=== PATIENT | female | born 1960 | race Caucasian/White ===

== ENCOUNTER 2024-09-17 13:14 | Inpatient (IN) ==
--- NOTE | 2024-09-17 13:35 | EKG ---
Test Reason : stroke protocol Blood Pressure : */* mmHG Vent. Rate : 73 BPM Atrial Rate : 73 BPM P-R Int : 200 ms QRS Dur : 80 ms QT Int : 400 ms P-R-T Axes : 18 10 39 degrees QTc Int : 440 ms Normal sinus rhythm Normal ECG No previous ECGs available Confirmed by Sukhwinder Mendosa MD ([id number]) on 09/18/2024 7:45:23 AM Referred By: Confirmed By: Sukhwinder Mendosa MD
[2024-09-17 13:55] LABS: BASOPHILS % (AUTO) 0.4 % (0.2-1.0); EOSINOPHILS # (AUTO) 0.1 x10^3/uL (0.0-0.2); EOSINOPHILS % (AUTO) 1.1 % (0.9-2.9); HEMATOCRIT 41.6 % (36.0-47.0); HEMOGLOBIN 14.1 g/dL (12.0-16.0); LYMPHOCYTES # (AUTO) 3.1 X10^3/uL (1.3-2.9); LYMPHOCYTES % (AUTO) 27.9 % (21.0-51.0); MEAN CORPUSCULAR HEMOGLOBIN 31.8 pg (27.0-34.0); MEAN CORPUSCULAR VOLUME 93.8 fL (80.0-100.0); MONOCYTES # (AUTO) 0.9 x10^3/uL (0.3-0.8); MONOCYTES % (AUTO) 8.4 % (0.0-13.0); NEUTROPHILS % (AUTO) 62.2 % (42.0-75.0); PLATELET COUNT 248 X10^3/uL (150.0-450.0); RED BLOOD COUNT 4.43 X10^6/uL (3.5-5.4); RED CELL DISTRIBUTION WIDTH 14.4 % (11.6-16.5); WHITE BLOOD COUNT 11.2 X10^3/uL (3.6-10.0)
[2024-09-17 14:05] LABS: ALANINE AMINOTRANSFERASE 48 Units/L (12-78); ALBUMIN 3.7 g/dL (3.4-5.0); ALKALINE PHOSPHATASE 131 Units/L (46-116); ASPARTATE AMINO TRANSFERASE 32 Units/L (15-37); BLOOD UREA NITROGEN 15 mg/dL (7-18); CALCIUM 8.9 mg/dL (8.5-10.1); CARBON DIOXIDE 27.8 mmol/L (21-32); CHLORIDE 105 mmol/L (98-107); CREATININE 0.84 mg/dL (0.55-1.02); GLUCOSE 109 mg/dL (65-99); POTASSIUM 4.1 mmol/L (3.5-5.1); SODIUM 143 mmol/L (136-145); TOTAL PROTEIN 7.8 g/dL (6.4-8.2); eGFR NON BLACK RACES > 60 (>60)
[2024-09-17 14:48] LABS: INR 1.48 (0.8-1.3)
[2024-09-17 14:55] LABS: MAGNESIUM 2.1 mg/dL (2.0-2.9)
--- NOTE | 2024-09-17 15:19 | CT ---
EXAM: HEAD CT WITHOUT INTRAVENOUS CONTRASTHISTORY: Altered mental status. Slurred speech.TECHNIQUE: Spiral axial CT images are obtained through the brain without the administration of intravenous contrast. Additional sagittal and coronal reformatted images are reconstructed.COMPARISON: Head CT dated August 28, 2024.FINDINGS:There is an approximately 4.3 cm AP by 2.8 cm transverse by 1.8 cm CC old stable right temporal lobe (MCA territory) infarction. There are parenchymal lucencies within the white matter tracks of the centrum semiovale, consistent with chronic sequela of atherosclerotic microvascular ischemic disease.There is diffuse cerebral cortical atrophy. The centrum semiovale, basal ganglia, cerebellum, and brainstem are otherwise grossly unremarkable for a noncontrast CT scan. There is no acute intracranial hemorrhage, gross acute infarction, mass lesion, midline shift, or hydrocephalus seen. No extra-axial mass or abnormal fluid collection noted.The calvarium is intact. There is stable severe chronic left posterior ethmoid and left sphenoid sinusitis marked by lobular mucoperiosteal thickening with air cell opacifications. The partially imaged paranasal sinuses, middle ear cavities and mastoid air cells are otherwise clear.IMPRESSION:1. Approximately 4.3 cm AP by 2.8 cm transverse by 1.8 cm CC old stable right temporal lobe (MCA territory) infarction.2. Chronic microvascular ischemic disease, but no discernible acute infarction seen. Consider followup MRI with diffusion-weighted imaging to rule out occult acute infarction if clinically warranted.3. No skull fracture, intracranial hemorrhage, mass lesion, midline shift, or hydrocephalus seen.4. Stable severe chronic left posterior ethmoid and left sphenoid sinusitis marked by lobular mucoperiosteal thickening with air cell opacifications.5. Overall, no significant interval change seen.THIS IS AN ELECTRONICALLY VERIFIED FINAL REPORT09/17/2024 3:14 PM - Electronically signed by Jae Arroyo MD
--- NOTE | 2024-09-17 15:25 | RAD ---
EXAM:CHEST, 1 VIEWHISTORY:Shortness of Breath;COMPARISON:NoneFINDINGS:The cardiomediastinal silhouette is prominent.No acute airspace disease. No pneumothorax or effusion.No acute osseous abnormality.IMPRESSION:No acute cardiopulmonary disease.THIS IS AN ELECTRONICALLY VERIFIED FINAL REPORT09/17/2024 3:22 PM - Electronically signed by Aj Wallace MD
--- NOTE | 2024-09-17 16:55 | DR.WEAKNES ---
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 Today, Patient was brought over by jail staff, [facility] and stated since last night she has gotten worse she has not been able to swollow her food without getting choked on it, states dysphagia has gotten worse per family and staff. Chief Complaint:: Aphasia Source History Provided: Patient Mode of Arrival Mode of Arrival: Stretcher Timing Onset of Chief Complaint: 09/16/24 Symptom Onset: Known (48h ago) Context Stroke Symptoms: Aphasia and Weakness of limb (RUE) PMH PMH Past Medical History: Yes Past Medical History: Anemia, Anxiety, Coronary Artery Disease, CVA, Depression, Dyslipidemia, Migraines, GERD, Headaches and Hypertension Past Surgical History: Yes Surgical History: Tonsillectomy and Other Family History History of Family Medical Conditions: Yes Family Medical History: Diabetes Mellitus, Coronary Artery Disease and Heart Failure Social History Does patient currently use any type of tobacco product: No Have you used tobacco products in the last 12 months: No Do you use any recreational Drugs:: No Travel Risk Coronavirus risk:travel/contact w/high risk person: No Has patient experienced Coronavirus symptoms: No Infectious screening In the last 2 months have you had wt loss of >10#?: NO Have you had fever, night sweats or hemotysis?: No Have you traveled outside the country in the last 6 months?: No Isolation: Standard ROS Review of Systems Unable to Obtain Due To: Altered mental status PE Vital Signs Vitals: Vital Signs Temperature 98.3 F Pulse Rate 73 Pulse Rate 74 Pulse Rate 74 Pulse Rate 74 Pulse Rate 73 Pulse Rate 73 Pulse Rate 74 Pulse Rate 74 Pulse Rate 73 Pulse Rate 73 Pulse Rate 73 Pulse Rate 71 Pulse Rate 71 Pulse Rate 72 Pulse Rate 70 Pulse Rate 70 Pulse Rate 71 Respiratory Rate 27 Respiratory Rate 25 Respiratory Rate 36 Respiratory Rate 36 Respiratory Rate 35 Respiratory Rate 35 Respiratory Rate 32 Respiratory Rate 36 Respiratory Rate 31 Respiratory Rate 32 Respiratory Rate 31 Respiratory Rate 36 Respiratory Rate 23 Respiratory Rate 29 Blood Pressure 140/84 Blood Pressure 136/88 Blood Pressure 136/88 Blood Pressure 136/88 Blood Pressure 149/76 Blood Pressure 161/74 Blood Pressure 144/71 Blood Pressure 136/70 Blood Pressure 136/70 Blood Pressure 136/70 Blood Pressure 136/70 Blood Pressure 134/72 Blood Pressure 139/75 O2 Sat by Pulse Oximetry 99 O2 Sat by Pulse Oximetry 98 O2 Sat by Pulse Oximetry 98 O2 Sat by Pulse Oximetry 98 O2 Sat by Pulse Oximetry 98 O2 Sat by Pulse Oximetry 99 O2 Sat by Pulse Oximetry 94 O2 Sat by Pulse Oximetry 96 O2 Sat by Pulse Oximetry 98 O2 Sat by Pulse Oximetry 98 O2 Sat by Pulse Oximetry 97 O2 Sat by Pulse Oximetry 99 O2 Sat by Pulse Oximetry 98 O2 Sat by Pulse Oximetry 98 Head Head Exam: Normal Inspection Eyes Eye exam: Normal Appearance Eyelids: Normal Inspection: Bilateral Pupils: Regular, Round: Bilateral Sclera/Conjunctival: Normal Inspection: Bilateral Anterior Chamber: Normal Inspection: Bilateral ENT ENT Exam: Normal Exam Mouth Exam: Normal Inspection Throat Exam: Normal Inspection Neck Neck Exam: Normal Inspection Chest Chest Inspection: Normal Inspection Respiratory Respiratory Exam: Normal Lung Sounds Bilat Respiratory Exam: Bilateral: Clear to Auscultation Cardiovascular Cardiovascular Exam: Regular Rate and Normal Rhythm Extremities Extremities Exam: Normal Inspection Back Back Exam: Normal Inspection Neurologic Neurological Exam: Other (L-sided hemiparesis (consistent with hx of prior CVA), RUE able to move, however tremulous with movement. Pt non-verbal. Making some eye contact. Not following commands.) Skin Skin Exam: Warm, Dry, Intact and Normal Color ROR Labs Reviewed Laboratory Results Reviewed?: Yes 09/17/24 13:47 09/17/24 13:47 Laboratory: WBC 11.2 X10^3/uL (3.6-10.0) H 09/17/24 13:47 RBC 4.43 X10^6/uL (3.5-5.4) 09/17/24 13:47 Hgb 14.1 g/dL (12.0-16.0) 09/17/24 13:47 Hct 41.6 % (36.0-47.0) 09/17/24 13:47 MCV 93.8 fL (80.0-100.0) 09/17/24 13:47 MCH 31.8 pg (27.0-34.0) 09/17/24 13:47 MCHC 34.0 g/dL (33.0-35.0) 09/17/24 13:47 RDW 14.4 % (11.6-16.5) 09/17/24 13:47 Plt Count 248 X10^3/uL (150.0-450.0) 09/17/24 13:47 MPV 7.0 fL (7.4-11.0) L 09/17/24 13:47 Neut % (Auto) 62.2 % (42.0-75.0) 09/17/24 13:47 Lymph % (Auto) 27.9 % (21.0-51.0) 09/17/24 13:47 [place] % (Auto) 8.4 % (0.0-13.0) 09/17/24 13:47 Eos % (Auto) 1.1 % (0.9-2.9) 09/17/24 13:47 Baso % (Auto) 0.4 % (0.2-1.0) 09/17/24 13:47 Neut # (Auto) 7.0 x10^3/uL (2.2-4.8) H 09/17/24 13:47 Lymph # (Auto) 3.1 X10^3/uL (1.3-2.9) H 09/17/24 13:47 [place] # (Auto) 0.9 x10^3/uL (0.3-0.8) H 09/17/24 13:47 Eos # (Auto) 0.1 x10^3/uL (0.0-0.2) 09/17/24 13:47 Baso # (Auto) 0.0 X10^3/uL (0.0-0.1) 09/17/24 13:47 Absolute Nucleated RBC 0.1 /100WBC 09/17/24 13:47 PT 17.5 SECONDS (11.8-14.3) 09/17/24 14:35 INR Target Range - 09/17/24 14:35 INR 1.48 (0.8-1.3) H 09/17/24 14:35 APTT 29.9 SECONDS (22.9-36.5) 09/17/24 14:35 PTT Comment - 09/17/24 14:35 Sodium 143 mmol/L (136-145) 09/17/24 13:47 Corrected Sodium TNP 09/17/24 13:47 Potassium 4.1 mmol/L (3.5-5.1) 09/17/24 13:47 Chloride 105 mmol/L (98-107) 09/17/24 13:47 Carbon Dioxide 27.8 mmol/L (21-32) 09/17/24 13:47 BUN 15 mg/dL (7-18) 09/17/24 13:47 Creatinine 0.84 mg/dL (0.55-1.02) 09/17/24 13:47 Est GFR (MDRD) Af Amer > 60 (>60) 09/17/24 13:47 Est GFR (MDRD) Non-Af > 60 (>60) 09/17/24 13:47 Glucose 109 mg/dL (65-99) H 09/17/24 13:47 Calcium 8.9 mg/dL (8.5-10.1) 09/17/24 13:47 Corrected Calcium TNP 09/17/24 13:47 Magnesium 2.1 mg/dL (2.0-2.9) 09/17/24 14:35 Total Bilirubin 0.60 mg/dL (0.2-1.0) 09/17/24 13:47 AST 32 Units/L (15-37) 09/17/24 13:47 ALT 48 Units/L (12-78) 09/17/24 13:47 Alkaline Phosphatase 131 Units/L (46-116) H 09/17/24 13:47 Creatine Kinase 90 Units/L (26-192) 09/17/24 14:35 Troponin I High Sens 6.3 ng/L (4.0-60.0) 09/17/24 14:35 B-Natriuretic Peptide 39.2 pg/mL (0-79) 09/17/24 14:35 Total Protein 7.8 g/dL (6.4-8.2) 09/17/24 13:47 Albumin 3.7 g/dL (3.4-5.0) 09/17/24 13:47 Globulin 4.1 g/dL (2.5-4.5) 09/17/24 13:47 Albumin/Globulin Ratio 0.9 Ratio (1.1-2.1) L 09/17/24 13:47 Opioid Opioid Risk Tool Age (Fox box if 16-45): No History of Preadolescent Sexual Abuse: No Total: 0 Total Score Risk Category: Low Risk Copyright: [facility] predicting aberrant behaviors Discharge Plan Diagnosis Discharge Problem: Acute CVA (cerebrovascular accident), Aphasia, Aspiration into airway Discharge Plan Patient Disposition: 09 ADMITTED INPATIENT Condition: Stable Prescriptions: No Action topiramate 25 mg tablet 25 mg PO DAILY amitriptyline 25 mg tablet 50 mg PO HS Patient Comments: [NO ORIGINAL SIG] magnesium oxide [MagOx] 400 mg (241.3 mg magnesium) Tablet 400 mg PO QDAY Ferrocite Plus 106 mg iron- 1 mg Tablet 1 tab PO QDAY escitalopram oxalate 10 mg tablet 10 mg PO HS Refresh Relieva PF 0.5-0.9 % drops 1 drp OPHTHALMIC (EYE) BID Patient Comments: [NO ORIGINAL SIG] Rx Instructions: both eyes cyclobenzaprine 10 mg tablet 10 mg PO BID PRN atorvastatin 40 mg tablet 40 mg PO HS zinc 100 mg Tablet 100 mg PO QDAY omega-3 fatty acids 1,000 mg Capsule 1,000 mg PO QDAY aspirin [Aspir-81] 81 mg Tablet,Delayed Release (Dr/Ec) 81 mg PO DAILY losartan 25 mg tablet 75 mg PO DAILY metoprolol tartrate 25 mg tablet 25 mg PO BID Eliquis 5 mg tablet 5 mg PO BID ondansetron HCl 4 mg tablet 4 mg PO Q8H PRNQty: 10 0RF Health Concerns: Post Hospitalization: new medications and changes needed to prevent readmission or further decline. Pt educated and given instructions on all concerns. Plan of Treatment: Continue with present treatment and follow up plan. Pt is to keep follow up appointment as instructed and take medications as ordered. Orders to Discharge Patient Discharge Orders: Transfer (Routine); Ordered 09/17/24 Ordered By: Krunal Merida Follow ups/Referrals Follow ups/Referrals: NFD,None [Primary Care Provider] - 3 days Instructions Stand Alone Forms: Find Help Web Site, Post Hospital Follow Up Care ADDITIONAL NOTES Additional Notes Additional Notes: Admitted to Dr French at 1640 for further workup and evaluation of CVA and aspiration.
[2024-09-17 18:58] VITALS: BMI 34.0
[2024-09-17] MEDS: NS 1,000 ML IV 1,000 ML IV SCH (19:39)
[2024-09-17] MEDS: ELIQUIS PO SCH (21:09)
[2024-09-17] MEDS: LIPITOR TAB 40 MG PO SCH (21:09)
[2024-09-17] MEDS: LOPRESSOR TAB 25 MG PO SCH (21:09)
[2024-09-17] MEDS: ELAVIL PO SCH (21:09)
[2024-09-18 05:13] LABS: BASOPHILS % (AUTO) 0.3 % (0.2-1.0); EOSINOPHILS # (AUTO) 0.1 x10^3/uL (0.0-0.2); EOSINOPHILS % (AUTO) 1.5 % (0.9-2.9); HEMATOCRIT 38.6 % (36.0-47.0); HEMOGLOBIN 13.2 g/dL (12.0-16.0); LYMPHOCYTES # (AUTO) 2.4 X10^3/uL (1.3-2.9); LYMPHOCYTES % (AUTO) 26.5 % (21.0-51.0); MEAN CORPUSCULAR HEMOGLOBIN 31.8 pg (27.0-34.0); MEAN CORPUSCULAR HGB CONC 34.1 g/dL (33.0-35.0); MEAN CORPUSCULAR VOLUME 93.3 fL (80.0-100.0); MONOCYTES # (AUTO) 0.7 x10^3/uL (0.3-0.8); MONOCYTES % (AUTO) 7.5 % (0.0-13.0); NEUTROPHILS # (AUTO) 5.9 x10^3/uL (2.2-4.8); NEUTROPHILS % (AUTO) 64.2 % (42.0-75.0); PLATELET COUNT 250 X10^3/uL (150.0-450.0); RED BLOOD COUNT 4.14 X10^6/uL (3.5-5.4); RED CELL DISTRIBUTION WIDTH 14.4 % (11.6-16.5); WHITE BLOOD COUNT 9.1 X10^3/uL (3.6-10.0)
[2024-09-18 05:25] LABS: ALANINE AMINOTRANSFERASE 43 Units/L (12-78); ALBUMIN 3.4 g/dL (3.4-5.0); ALKALINE PHOSPHATASE 113 Units/L (46-116); ASPARTATE AMINO TRANSFERASE 25 Units/L (15-37); BLOOD UREA NITROGEN 20 mg/dL (7-18); CALCIUM 8.4 mg/dL (8.5-10.1); CARBON DIOXIDE 24.3 mmol/L (21-32); CHLORIDE 106 mmol/L (98-107); CHOL/HDL RATIO 2.6 (0.0-5.0); CHOLESTEROL 113 mg/dL (0-200); COR NA(FOR HYPERGLY) 142 mmol/L (136-145); CREATININE 0.83 mg/dL (0.55-1.02); GLUCOSE 117 mg/dL (65-99); HDL CHOLESTEROL 43 mg/dL (40-60); POTASSIUM 3.6 mmol/L (3.5-5.1); SODIUM 142 mmol/L (136-145); TOTAL PROTEIN 6.9 g/dL (6.4-8.2); TRIGLYCERIDES 63 mg/dL (0-150); eGFR NON BLACK RACES > 60 (>60)
[2024-09-18 05:29] LABS: INR 1.46 (0.8-1.3)
[2024-09-18] MEDS ORDERED: CONSULT PHARMACY - POTASSIUM & MAGNESIUM XX SCH (07:00)
--- NOTE | 2024-09-18 08:06 | RAD ---
EXAMINATION:CHEST, 1 VIEWHISTORY:Cough, Aspiration; .COMPARISON STUDY:Chest x-ray 09/17/2019TECHNIQUE:Single frontal view of the chestFINDINGS:Lungs are expanded. Patchy interstitial alveolar infiltrate in the right pulmonary base. Equivocal infiltrate right pulmonary apex. Mild cardiac silhouette enlargement. Mild curvature thoracic spine convexity toward right.IMPRESSION:Patchy interstitial alveolar infiltrate right pulmonary base with a equivocal infiltrate right pulmonary apex.Cardiac silhouette enlargement.THIS IS AN ELECTRONICALLY VERIFIED FINAL REPORT09/18/2024 8:03 AM - Electronically signed by Camille Richardson MD
[2024-09-18 08:56] LABS: CREATININE 0.79 mg/dL (0.55-1.02)
[2024-09-18] MEDS ORDERED: PHARMACY CONSULT - LOVENOX XX SCH (09:00)
[2024-09-18] MEDS ORDERED: PATIENT'S HOME MEDICATION (Losartan 25 mg tablet) PO SCH (09:00)
[2024-09-18] MEDS ORDERED: PHARMACY CONSULT LTC MEDICATIONS XX SCH (09:00)
[2024-09-18] MEDS ORDERED: K-DUR TAB 20 MEQ PO SCH (09:00)
[2024-09-18] MEDS: ROCEPHIN VIAL 1 GRAM 1 G in NS 100 ML IV 100 ML IV SCH (09:36)
[2024-09-18] MEDS: LOVENOX INJ 40 MG SYR SC SCH (09:38)
[2024-09-18] MEDS: ASPIRIN EC 81 MG PO SCH (09:43)
[2024-09-18] MEDS: COZAAR PO SCH (09:43)
[2024-09-18] MEDS: DIFLUCAN 200 MG IV PREMIX* 200 MG/100 ML BAG IV SCH (10:06)
[2024-09-18] MEDS: K-RIDER 10 MEQ/100 ML WATER 10 MEQ/100 ML BAG IV SCH (11:23)
--- NOTE | 2024-09-18 12:48 | VAS ---
EXAM:CAROTID USHISTORY:CVA;Altered mental status.COMPARISON:None available.TECHNIQUE:Multiple woodson scale, duplex and color flow Doppler images of the right and left carotid arterial system were obtained. The vertebral arterial system was evaluated as well.FINDINGS:Nonocclusive color flow Doppler is seen throughout the right and left carotid arterial system.Abnormally elevated carotid velocities are seen within the left CCA arteries in the 50-69% stenosis range.There is moderate atherosclerotic plaque formation of the bilateral carotid bulbs and proximal ICAs with associated intimal thickening but without evidence for any additional high-grade stenosis (>70%) or occlusion of the carotid arteries. The right and left vertebral artery demonstrate antegrade flow.There is patent flow and normal duplex waveforms within the right and left external carotid arteries.Peak right ICA velocity: 83 centimeter/seconds.Peak right CCA velocity: 63 centimeter/seconds.Right ICA to CCA ratio: 2.0.Peak left ICA velocity: 90 centimeter/seconds.Peak left CCA velocity: 147 centimeter/seconds.Left ICA to CCA ratio: 1.0.IMPRESSION:Abnormally elevated carotid velocities are seen within the left CCA arteries in the 50-69% stenosis range.There is moderate atherosclerotic plaque formation of the bilateral carotid bulbs and proximal ICAs with associated intimal thickening but without evidence for any additional high-grade stenosis (>70%) or occlusion of the carotid arteries. The right and left vertebral artery demonstrate antegrade flow.THIS IS AN ELECTRONICALLY VERIFIED FINAL REPORT09/18/2024 12:45 PM - Electronically signed by Johnson Walton MD
[2024-09-18] MEDS ORDERED: APRESOLINE INJ 20 MG VIAL IVP PRN (14:58)
--- NOTE | 2024-09-18 16:52 | MRI ---
EXAM:BRAIN W/O CONHISTORY:CVA;COMPARISON:CT yesterdayTECHNIQUE:Multiplanar multi-sequence MRI of the brain was obtained utilizing standard departmental protocol. Sagittal and axial T1 weighted images were obtained. Axial T2 and flair weighted images were performed as well. Axial diffusion weighted and ADC trace mapping was performed.FINDINGS:The midline structures appear unremarkable. The evaluation of the brain parenchyma demonstrates no abnormal signal characteristics to suggest intraparenchymal mass or hemorrhage. No extra-axial fluid collections are observed. The ventricular system appears symmetric and nondilated. The CP angle is normal in its appearance without brainstem mass or evidence for acoustic neuroma. The flow voids on both T1 and T2 weighted imaging appear unremarkable. Evaluation of the diffusion weighted imaging does not demonstrate abnormal signal characteristics to suggest acute ischemic change. Chronic infarcts are noted in the right temporal lobe and right occipital lobe. Moderate small-vessel ischemic changes and age-appropriate atrophy noted. The extracranial structures are unremarkable.IMPRESSION:Chronic changes as above with no evidence for any acute/subacute stroke.THIS IS AN ELECTRONICALLY VERIFIED FINAL REPORT09/18/2024 4:49 PM - Electronically signed by Eddie Michel MD
--- NOTE | 2024-09-18 18:01 | DR.H&P ---
H&P History & Physical for Day of: H&P Date: 09/17/24 Chief Complaint Chief Complaint: AMS, RIGHT SIDE WEAKNESS History of Present Illness History of Present Illness: PT IS 63 WF, RESIDENT OF [facility], ER ADMISSION WITH NEW ONSET RIGHT SIDE WEAKNESS ON WEDNESDAY. PT'S FAMILY REPORTS SHE WAS NORMAL PHYSICAL CONDITION EARILIER WEDNESDAY. PT HAD CO SOB FAMILY PRACTICE MEDICAL DOCTOR. PT HAS PMH OF LEFT SIDE PARALYSIS FOLLOWING A CVA ~ 2 YEARS AGO. 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 PT HAD CT HEAD IN ER, ADMITTED FOR TREATMENT AND EVALUATION OF ACUTE I LLNESS Past Medical History Past Medical History: Anemia, Anxiety, Coronary Artery Disease, CVA, Depression, Dyslipidemia, Migraines, GERD, Headaches and Hypertension Past Surgical History Surgical History: Tonsillectomy and Other Family History Family Medical History: Diabetes Mellitus and Coronary Artery Disease Social History Does patient currently use any type of tobacco product: No Have you used tobacco products in the last 12 months: No Type of Tobacco Use: None Does any household member use tobacco: No Alcohol Use: None Drug Use: None Medications Home Medications: Home Medications Medication Instructions Recorded Confirmed Type apixaban 5 mg tablet (Eliquis) 5 mg PO BID 07/17/23 09/17/24 History aspirin 81 mg tablet,delayed 81 mg PO DAILY 07/17/23 09/17/24 History release atorvastatin 40 mg tablet 40 mg PO HS 07/17/23 09/17/24 History cyclobenzaprine 10 mg tablet 10 mg PO BID PRN 07/17/23 09/17/24 History losartan 25 mg tablet 75 mg PO DAILY 07/17/23 09/17/24 History metoprolol tartrate 25 mg tablet 25 mg PO BID 07/17/23 09/17/24 History omega-3 fatty acids 1,000 mg 1,000 mg PO QDAY 07/17/23 09/17/24 History capsule zinc 100 mg tablet 100 mg PO QDAY 07/17/23 09/17/24 History amitriptyline 25 mg tablet 50 mg PO HS 09/16/24 09/17/24 History carboxymethylcellulose 0.5 1 drp ophthalmic (eye) BID dry eyes 09/16/24 09/17/24 History %-glycerin 0.9 % (PF) eye drops (Refresh Relieva PF) escitalopram oxalate 10 mg tablet 10 mg PO HS 09/16/24 09/17/24 History magnesium oxide 400 mg (241.3 mg 400 mg PO QDAY 09/16/24 09/17/24 History magnesium) tablet (MagOx) topiramate 25 mg tablet 25 mg PO DAILY 09/16/24 09/17/24 History B [id number] 106 mg 1 tab PO QDAY 09/17/24 09/17/24 History iron-1 mg tablet acetaminophen 325 mg tablet 650 mg PO Q4H PRN 09/17/24 09/17/24 History (Tylenol) Allergies Allergies Allergy/AdvReac Type Severity Reaction Status Date / Time lisinopril Allergy Verified 09/17/24 13:23 Labs 09/18/24 04:56 09/18/24 04:56 Labs: Laboratory WBC 9.1 X10^3/uL (3.6-10.0) 09/18/24 04:56 RBC 4.14 X10^6/uL (3.5-5.4) 09/18/24 04:56 Hgb 13.2 g/dL (12.0-16.0) 09/18/24 04:56 Hct 38.6 % (36.0-47.0) 09/18/24 04:56 MCV 93.3 fL (80.0-100.0) 09/18/24 04:56 MCH 31.8 pg (27.0-34.0) 09/18/24 04:56 MCHC 34.1 g/dL (33.0-35.0) 09/18/24 04:56 RDW 14.4 % (11.6-16.5) 09/18/24 04:56 Plt Count 250 X10^3/uL (150.0-450.0) 09/18/24 04:56 MPV 7.0 fL (7.4-11.0) L 09/18/24 04:56 Neut % (Auto) 64.2 % (42.0-75.0) 09/18/24 04:56 Lymph % (Auto) 26.5 % (21.0-51.0) 09/18/24 04:56 [place] % (Auto) 7.5 % (0.0-13.0) 09/18/24 04:56 Eos % (Auto) 1.5 % (0.9-2.9) 09/18/24 04:56 Baso % (Auto) 0.3 % (0.2-1.0) 09/18/24 04:56 Neut # (Auto) 5.9 x10^3/uL (2.2-4.8) H 09/18/24 04:56 Lymph # (Auto) 2.4 X10^3/uL (1.3-2.9) 09/18/24 04:56 [place] # (Auto) 0.7 x10^3/uL (0.3-0.8) 09/18/24 04:56 Eos # (Auto) 0.1 x10^3/uL (0.0-0.2) 09/18/24 04:56 Baso # (Auto) 0.0 X10^3/uL (0.0-0.1) 09/18/24 04:56 Absolute Nucleated RBC 0.0 /100WBC 09/18/24 04:56 PT 17.4 SECONDS (11.8-14.3) 09/18/24 04:56 INR Target Range - 09/18/24 04:56 INR 1.46 (0.8-1.3) H 09/18/24 04:56 APTT 30.7 SECONDS (22.9-36.5) 09/18/24 04:56 PTT Comment - 09/18/24 04:56 Sodium 142 mmol/L (136-145) 09/18/24 04:56 Corrected Sodium 142 mmol/L (136-145) 09/18/24 04:56 Potassium 3.6 mmol/L (3.5-5.1) 09/18/24 04:56 Chloride 106 mmol/L (98-107) 09/18/24 04:56 Carbon Dioxide 24.3 mmol/L (21-32) 09/18/24 04:56 BUN 18 mg/dL (7-18) 09/18/24 04:56 BUN 20 mg/dL (7-18) H 09/18/24 04:56 Creatinine 0.79 mg/dL (0.55-1.02) 09/18/24 04:56 Creatinine 0.83 mg/dL (0.55-1.02) 09/18/24 04:56 Est GFR (MDRD) Af Amer > 60 (>60) 09/18/24 04:56 Est GFR (MDRD) Non-Af > 60 (>60) 09/18/24 04:56 Glucose 117 mg/dL (65-99) H 09/18/24 04:56 Calcium 8.4 mg/dL (8.5-10.1) L 09/18/24 04:56 Corrected Calcium TNP 09/18/24 04:56 Magnesium 2.0 mg/dL (2.0-2.9) 09/18/24 04:56 Total Bilirubin 0.70 mg/dL (0.2-1.0) 09/18/24 04:56 AST 25 Units/L (15-37) 09/18/24 04:56 ALT 43 Units/L (12-78) 09/18/24 04:56 Alkaline Phosphatase 113 Units/L (46-116) 09/18/24 04:56 Creatine Kinase 93 Units/L (26-192) 09/17/24 19:20 Troponin I High Sens 9.3 ng/L (4.0-60.0) 09/18/24 04:56 Troponin I High Sens Cancelled 09/18/24 04:56 B-Natriuretic Peptide 39.2 pg/mL (0-79) 09/17/24 14:35 Total Protein 6.9 g/dL (6.4-8.2) 09/18/24 04:56 Albumin 3.4 g/dL (3.4-5.0) 09/18/24 04:56 Globulin 3.5 g/dL (2.5-4.5) 09/18/24 04:56 Albumin/Globulin Ratio 1.0 Ratio (1.1-2.1) L 09/18/24 04:56 Triglycerides 63 mg/dL (0-150) 09/18/24 04:56 Cholesterol 113 mg/dL (0-200) 09/18/24 04:56 LDL Cholesterol, Calc 57 mg/dL (0-100) 09/18/24 04:56 HDL Cholesterol 43 mg/dL (40-60) 09/18/24 04:56 Cholesterol/HDL Ratio 2.6 (0.0-5.0) 09/18/24 04:56 Review of Systems Constitutional: Weakness Eyes: No Symptoms Reported and Vision Change ENT: Other (EXCESSIVE DROOLING ) Respiratory: Shortness of Breath Cardiovascular: No Symptoms Reported Gastrointestinal: Constipation; denies Vomiting Genitourinary: Incontinence Musculoskeletal: Other (PARALYSIS) Skin: No Symptoms Reported Neurological: Weakness, Change in Speech and Confusion Physical Exam Vital Signs: Vital Signs Temperature 98.0 F Temperature 98.6 F Temperature 98.6 F Pulse Rate [Left] 94 Pulse Rate [Left] 102 Pulse Rate [Left] 102 Respiratory Rate 18 Respiratory Rate 24 Respiratory Rate 24 Blood Pressure [Left Arm] 137/72 Blood Pressure [Left Arm] 119/69 Blood Pressure [Left Arm] 119/69 O2 Sat by Pulse Oximetry 95 O2 Sat by Pulse Oximetry 94 O2 Sat by Pulse Oximetry 94 Oriented: Unable to test Eyes: negative Discharge or Redness Nose: Normal Throat: Dry Respiratory: RLL Diminished and LLL Diminished Cardiovascular: Edema; negative Tachycardia Auscultation: Bowel Sounds: Normal Palpation: Normal Tenderness: Normal Skin: Decreased Turgur Musculoskeletal: Motor Deficit and Sensory Deficit Psychiatric: Other (CANNOT ASSESS DUE TO APHAGIA) Speech Pattern: Aphasic and Unable to speak Assessment/Plan (1) Acute CVA (cerebrovascular accident): Status: Acute Plan: ADMIT, CE AND EKG,C T HEAD ON ADMISSION MRI BRAIN CAROTID,ECHO, VERIFY HOME MEDICATIONS BP CONTROL, NPO UNTIL MRI BRAIN AND SPEECH EVALUATION PRN SUPPLEMENTAL O2, ASPIRATION PRECAUTIONS (2) History of CVA (cerebrovascular accident): Status: Acute (3) Afib: Status: Acute (4) Hypertension: Status: Acute (5) Hyperlipidemia: Status: Acute
[2024-09-19] MEDS: STERILE WATER IRRIGATION IR ONE (09:00)
[2024-09-19] MEDS: DUONEB 0.5 MG/3 MG (3 mL) NEB SCH (13:46)
--- NOTE | 2024-09-19 14:44 | CT ---
EXAM:ABDCMEN/PELVIS WITH CONHISTORY:abdominal pain;COMPARISON:NoneTECHNIQUE:Multiple CT axial images of the abdomen and pelvis were obtained with IV contrast. Coronal and sagittal images were reconstructed. Dose reduction techniques included Automated Exposure Control (AEC) and adjustment of mA and kV.FINDINGS:No consolidation or pleural effusion. Heart size at the upper limits of normal.The liver is normal in size and configuration. The gallbladder has no edema around it. The spleen is normal in size and shape.The adrenal glands are normal. The pancreas is normal.Respiratory motion artifact was present during imaging of the upper kidneys. There is at least 1 calcification in the left mid kidney measuring 3 mm. Possible 1 mm calcification lower pole right kidney. No mass or hydronephrosis. Probable cortical scarring inferior right kidney. The urinary bladder is partially contracted around a Alberts balloon catheter.Large stool volume in the rectosigmoid colon suggests constipation. There is no bowel dilatation or obstruction otherwise noted. No pneumoperitoneum. No bowel inflammation. A normal appendix is not identified. But there is no inflammation around the cecum or at the expected location of the appendix. There are diverticula in the colon. But there is no wall thickening or pericolonic edema to suggest acute diverticulitis.Degenerative disc disease is present at L4-5.IMPRESSION:1. Findings consistent with rectal constipation2. Nonobstructing left renal calculus3. Colonic diverticulaTHIS IS AN ELECTRONICALLY VERIFIED FINAL REPORT09/19/2024 2:41 PM - Electronically signed by Lake Philip MD
[2024-09-19 15:30] LABS: BILIRUBIN,URINE NEGATIVE (NEGATIVE); BLOOD/HEMOGLOBIN,URINE 1+ (NEGATIVE); GLUCOSE, URINE NEGATIVE (NEGATIVE); KETONES,URINE 3+ (NEGATIVE); LEUKOCYTE ESTERASE ,URINE 1+ (NEGATIVE); NITRITES,URINE NEGATIVE (NEGATIVE); PROTEIN,URINE 1+ (NEGATIVE); UROBILINOGEN,URINE NORMAL (NORMAL)
[2024-09-19 15:31] LABS: APPEARANCE,URINE SLIGHTLY HAZY (CLEAR); COLOR,URINE PALE YELLOW (YELLOW)
[2024-09-19 16:28] LABS: BACTERIA,URINE 1+ /HPF (NEGATIVE); SQUAMOUS EPITHELIAL CELL,UR NUMEROUS /HPF (NEGATIVE)
[2024-09-19] MEDS ORDERED: PHARMACY CONSULT - TPN XX SCH (16:31)
[2024-09-19] MEDS: PULMICORT NEB TX 0.5 MG NEB SCH (20:28)
--- NOTE | 2024-09-20 05:28 | RAD ---
EXAM: CHEST, 1 VIEW HISTORY: Pt not voiding for 14 hrs; COMPARISON: None. TECHNIQUE: FINDINGS: Mild pulmonary vascular congestion. No large consolidation or visible pleural effusion. Ectatic tho racic aorta. No pneumothorax. IMPRESSION: Findings as above THIS IS AN ELECTRONICALLY VERIFIED FINAL REPORT 09/20/2024 5:25 AM - Electronically signed by Denis Enriquez MD
[2024-09-20 05:42] LABS: BASOPHILS # (AUTO) 0.1 X10^3/uL (0.0-0.1); BASOPHILS % (AUTO) 0.5 % (0.2-1.0); EOSINOPHILS % (AUTO) 0.3 % (0.9-2.9); HEMATOCRIT 38.1 % (36.0-47.0); HEMOGLOBIN 12.9 g/dL (12.0-16.0); LYMPHOCYTES # (AUTO) 2.3 X10^3/uL (1.3-2.9); LYMPHOCYTES % (AUTO) 19.5 % (21.0-51.0); MEAN CORPUSCULAR HEMOGLOBIN 31.7 pg (27.0-34.0); MEAN CORPUSCULAR HGB CONC 33.9 g/dL (33.0-35.0); MEAN CORPUSCULAR VOLUME 93.5 fL (80.0-100.0); MEAN PLATELET VOLUME 7.1 fL (7.4-11.0); MONOCYTES % (AUTO) 8.5 % (0.0-13.0); NEUTROPHILS # (AUTO) 8.3 x10^3/uL (2.2-4.8); NEUTROPHILS % (AUTO) 71.2 % (42.0-75.0); PLATELET COUNT 255 X10^3/uL (150.0-450.0); RED BLOOD COUNT 4.07 X10^6/uL (3.5-5.4); RED CELL DISTRIBUTION WIDTH 14.4 % (11.6-16.5); WHITE BLOOD COUNT 11.6 X10^3/uL (3.6-10.0)
[2024-09-20 06:01] LABS: ALANINE AMINOTRANSFERASE 35 Units/L (12-78); ALBUMIN 3.1 g/dL (3.4-5.0); ALKALINE PHOSPHATASE 104 Units/L (46-116); ASPARTATE AMINO TRANSFERASE 22 Units/L (15-37); BLOOD UREA NITROGEN 11 mg/dL (7-18); CALCIUM 8.4 mg/dL (8.5-10.1); CARBON DIOXIDE 22.9 mmol/L (21-32); CHLORIDE 106 mmol/L (98-107); COR CA(FOR HYPOALB) 9.1 mg/dL (8.5-10.1); COR NA(FOR HYPERGLY) 140 mmol/L (136-145); CREATININE 0.62 mg/dL (0.55-1.02); GLUCOSE 121 mg/dL (65-99); POTASSIUM 3.6 mmol/L (3.5-5.1); SODIUM 139 mmol/L (136-145); eGFR NON BLACK RACES > 60 (>60)
[2024-09-20] MEDS: OMNIPAQUE 350 mg/mL 100 mL BTL 100 ML ONE (11:43)
[2024-09-20] MEDS ORDERED: ULTRAM PO PRN (13:07)
[2024-09-20] MEDS: DULCOLAX SUPPOSITORY 10 MG RECTAL ONE (14:14)
[2024-09-20] MEDS: ZOFRAN INJ 4 MG VIAL IVP PRN (14:15)
[2024-09-20] MEDS: MORPHINE SULFATE INJ 2 MG INJ IVP PRN (14:15)
[2024-09-20 15:08] LABS: MAGNESIUM 1.9 mg/dL (2.0-2.9); PHOSPHORUS 3.4 mg/dL (2.6-4.7)
[2024-09-20] MEDS: CLINIMIX 5 %/20 % 1,000 ML with MVI INJ (ADULT) 10 ML, TPN ELECTROLYTES 20 ML IV SCH (15:32)
[2024-09-20] MEDS: DRUG FILTER EXTENSION SET ONE (16:19)
[2024-09-20] MEDS: NS 1,000 ML IV 1,000 ML IV SCH (16:20)
[2024-09-20] MEDS: NovoLIN R (or HumuLIN R) SUBCUT PRN (18:22)
[2024-09-21] MEDS: DRUG FILTER EXTENSION SET ONE (05:13)
[2024-09-21 06:49] LABS: PREALBUMIN 15.4 mg/dL (18-35.7)
[2024-09-21 07:00] LABS: ALANINE AMINOTRANSFERASE 30 Units/L (12-78); ALBUMIN 2.7 g/dL (3.4-5.0); ALKALINE PHOSPHATASE 84 Units/L (46-116); ASPARTATE AMINO TRANSFERASE 17 Units/L (15-37); BLOOD UREA NITROGEN 14 mg/dL (7-18); CALCIUM 7.9 mg/dL (8.5-10.1); CARBON DIOXIDE 24.1 mmol/L (21-32); CHLORIDE 106 mmol/L (98-107); COR CA(FOR HYPOALB) 8.9 mg/dL (8.5-10.1); COR NA(FOR HYPERGLY) 140 mmol/L (136-145); CREATININE 0.59 mg/dL (0.55-1.02); GLUCOSE 172 mg/dL (65-99); POTASSIUM 3.5 mmol/L (3.5-5.1); SODIUM 138 mmol/L (136-145); TOTAL PROTEIN 6.3 g/dL (6.4-8.2); eGFR NON BLACK RACES > 60 (>60)
--- NOTE | 2024-09-21 07:13 | DR.UPDATE ---
H&P Update Prescription drug monitoring program results: PDMP was not reviewed H&P Reviewed: Yes Any changes to H&P?: No Patient was examined?: Yes Vital Signs: Temp Pulse Pulse Resp BP BP Pulse Ox 09/21/24 04:00 97.7 F 93 H 18 112/56 94 L 09/21/24 00:00 98.0 F 99 H 20 126/60 95 09/20/24 19:00 09/20/24 20:00 98.4 F 100 H 20 142/79 95 09/20/24 20:34 102 H 95 09/20/24 20:33 09/20/24 16:00 97.8 F 107 H 18 137/75 95 09/20/24 14:45 18 09/20/24 14:15 21 09/20/24 12:00 98.3 F 97 H 18 136/63 95 09/20/24 07:00 09/20/24 08:00 99.2 F 90 18 122/71 95 09/20/24 08:36 09/20/24 04:00 99.5 F 82 22 142/73 94 L 09/20/24 00:00 99.1 F 107 H 21 142/71 94 L 09/19/24 20:00 98.2 F 97 H 22 140/82 94 L 09/19/24 19:00 09/19/24 19:13 98.4 F 104 H 152/79 97 09/19/24 16:00 98.4 F 104 H 18 142/84 97 09/19/24 12:00 98.3 F 95 H 17 165/72 98 09/19/24 13:46 93 H 98 09/19/24 08:00 97.9 F 93 H 16 119/71 98 09/19/24 07:00 09/19/24 04:00 98.4 F 89 18 147/76 95 09/19/24 00:00 98.0 F 89 18 136/77 95 09/18/24 19:00 09/18/24 20:20 09/18/24 20:00 99.4 F 103 H 22 142/62 94 L 09/18/24 16:00 98.0 F 94 H 18 137/72 95 09/18/24 12:00 98.6 F 102 H 24 119/69 94 L 09/18/24 12:00 98.6 F 102 H 24 119/69 94 L 09/18/24 07:50 99.3 F 83 24 123/58 96 O2 Del Method O2 Flow Rate FiO2 09/21/24 04:00 Nasal Cannula 2 09/21/24 00:00 Nasal Cannula 2 09/20/24 19:00 Nasal Cannula 2 09/20/24 20:00 Nasal Cannula 2 09/20/24 20:34 09/20/24 20:33 Nasal Cannula 2 28 09/20/24 16:00 Nasal Cannula 2 09/20/24 14:45 09/20/24 14:15 09/20/24 12:00 Nasal Cannula 2 09/20/24 07:00 Nasal Cannula 2 09/20/24 08:00 Nasal Cannula 2 09/20/24 08:36 Room Air 2 28 09/20/24 04:00 Room Air 09/20/24 00:00 Room Air 09/19/24 20:00 Room Air 09/19/24 19:00 Room Air 09/19/24 19:13 Room Air 09/19/24 16:00 Room Air 09/19/24 12:00 Room Air 09/19/24 13:46 09/19/24 08:00 Room Air 09/19/24 07:00 Room Air 09/19/24 04:00 09/19/24 00:00 09/18/24 19:00 Room Air 09/18/24 20:20 Room Air 09/18/24 20:00 09/18/24 16:00 Room Air 09/18/24 12:00 Room Air 09/18/24 12:00 Room Air 09/18/24 07:50 Room Air Procedures (ALL) - Central Line Placement PCM.CLCO: written consent Time out performed: Yes Patient placed pm monitor/pulse ox: Yes MD prep: mask, gown, gloves, other Centrial line prep: chlorhexidine scrub, sterile drapes applied Local anesthsia used: lidocane 1% Ultrasound used for placement: Yes (right basilic id'd via u/s and cannulation vis) Central line lumen ininserted: double (5.5fr trimmed to 47cm with 6cm exposed) Post procedure: good blood return, all ports aspirated, flushed,capped, sterile dressing applied Post procedure xray: tip oc catheter in good position (appears svc, radiology report pending) Patient tolerated procedure: Yes Complications: none
[2024-09-21] MEDS ORDERED: CONSULT PHARMACY - POTASSIUM & MAGNESIUM XX SCH (08:00)
--- NOTE | 2024-09-21 08:52 | RAD ---
EXAM: CHEST, 1 VIEW HISTORY: PICC LINE PLACEMENT; COMPARISON: 09/19/2024 FINDINGS: A right peripherally inserted central catheter is present with the tip in the expected location of th e superior vena cava. Lungs are moderately inflated but have no significant abnormality. No pneumothorax. Heart size is normal. The bones are unremarkable. EKG leads are noted. IMPRESSION: 1. Uncomplicated line placement THIS IS AN ELECTRONICALLY VERIFIED FINAL REPORT 09/21/2024 8:32 AM - Electronically signed by [place] MD
[2024-09-21] MEDS: LASIX IVP ONE (09:14)
[2024-09-21] MEDS: TPN ELECTROLYTES IV SCH (11:17)
[2024-09-21] MEDS: MVI IV SCH (11:17)
[2024-09-21] MEDS: CLINIMIX IV SCH (11:17)
[2024-09-21] MEDS: [UNRECOGNIZED DRUG - OTHER] IV SCH (11:17)
[2024-09-21] MEDS: PROTONIX INJ 40 MG VIAL IVP SCH (17:01)
--- NOTE | 2024-09-21 23:50 | CT ---
EXAM: SOFT TISSUE NECK W/O CON HISTORY: NECK PAIN; COMPARISON: None. TECHNIQUE: Axial CT images of the neck were obtained without IV contrast and reformatted into sagittal and coron al planes for further evaluation. Radiation dose: 277.28 mGy-cm total DLP FINDINGS: Oropharynx and nasopharynx are unremarkable. Retropharyngeal and parapharyngeal spaces appear normal. Epiglottis and aryepiglottic folds appear normal. Glottis appears normal. Parotid and submandibular glands appear normal. Thyroid appears normal Lung apices are clear of focal airspace disease. No lymphadenopathy. Proximal esophageal wall thickening. Flocculent material in the proximal to mid esophagus. No acute osseous abnormality. Ghya-as-hxdwilib multilevel degenerative disc and joint changes. Zkof-lw-nkbihbjl neural foraminal n arrowing. Imaged portion of the intracranial contents are unremarkable. Sinuses and mastoid air cells are well aerated. IMPRESSION: 1. Proximal esophageal wall thickening. Flocculent material in the proximal to mid esophagus. Findin gs could represent the sequela of a distal esophageal obstruction or esophageal reflux. Wall thicken ing could also represent the sequela of esophagitis. Otherwise, unremarkable exam. 2. Lyid-yh-milwxrwt multilevel degenerative disc and joint changes. Fhmm-dm-xmwhbyoh neural foramina l narrowing. THIS IS AN ELECTRONICALLY VERIFIED FINAL REPORT 09/21/2024 11:47 PM - Electronically signed by Rohith Augustin MD
[2024-09-22 06:16] LABS: BASOPHILS # (AUTO) 0.1 X10^3/uL (0.0-0.1); BASOPHILS % (AUTO) 0.9 % (0.2-1.0); EOSINOPHILS # (AUTO) 0.2 x10^3/uL (0.0-0.2); EOSINOPHILS % (AUTO) 1.8 % (0.9-2.9); HEMATOCRIT 38.9 % (36.0-47.0); HEMOGLOBIN 13.3 g/dL (12.0-16.0); LYMPHOCYTES # (AUTO) 2.6 X10^3/uL (1.3-2.9); MEAN CORPUSCULAR HGB CONC 34.1 g/dL (33.0-35.0); MEAN CORPUSCULAR VOLUME 93.8 fL (80.0-100.0); MEAN PLATELET VOLUME 7.6 fL (7.4-11.0); MONOCYTES % (AUTO) 10.8 % (0.0-13.0); NEUTROPHILS # (AUTO) 5.8 x10^3/uL (2.2-4.8); NEUTROPHILS % (AUTO) 59.5 % (42.0-75.0); PLATELET COUNT 262 X10^3/uL (150.0-450.0); RED BLOOD COUNT 4.15 X10^6/uL (3.5-5.4); RED CELL DISTRIBUTION WIDTH 14.3 % (11.6-16.5); WHITE BLOOD COUNT 9.7 X10^3/uL (3.6-10.0)
[2024-09-22 07:02] LABS: ALANINE AMINOTRANSFERASE 32 Units/L (12-78); ALBUMIN 2.7 g/dL (3.4-5.0); ALKALINE PHOSPHATASE 83 Units/L (46-116); ASPARTATE AMINO TRANSFERASE 18 Units/L (15-37); BLOOD UREA NITROGEN 15 mg/dL (7-18); CALCIUM 8.5 mg/dL (8.5-10.1); CARBON DIOXIDE 24.9 mmol/L (21-32); CHLORIDE 107 mmol/L (98-107); COR CA(FOR HYPOALB) 9.5 mg/dL (8.5-10.1); COR NA(FOR HYPERGLY) 143 mmol/L (136-145); CREATININE 0.62 mg/dL (0.55-1.02); GLUCOSE 222 mg/dL (65-99); POTASSIUM 3.8 mmol/L (3.5-5.1); SODIUM 140 mmol/L (136-145); TOTAL PROTEIN 6.6 g/dL (6.4-8.2); eGFR NON BLACK RACES > 60 (>60)
[2024-09-22] MEDS: BENADRYL INJ 50 MG VIAL IVP ONE (08:15)
[2024-09-22] MEDS: ISOPTO ATROPINE SL PRN (08:15)
[2024-09-22] MEDS: REGLAN INJ 10 MG VIAL IVP PRN (08:15)
[2024-09-22] MEDS: MERREM VIAL 1 G in NS 100 ML IV 100 ML IV SCH (09:51)
[2024-09-23] MEDS: DEXTROSE 10% 1,000 ML IV PRN (02:47)
[2024-09-23] MEDS: DRUG FILTER EXTENSION SET ONE ×4 (04:16→16:45)
[2024-09-23 07:29] LABS: ALANINE AMINOTRANSFERASE 27 Units/L (12-78); ALBUMIN 2.7 g/dL (3.4-5.0); ALKALINE PHOSPHATASE 81 Units/L (46-116); ASPARTATE AMINO TRANSFERASE 17 Units/L (15-37); BLOOD UREA NITROGEN 15 mg/dL (7-18); CALCIUM 8.4 mg/dL (8.5-10.1); CHLORIDE 107 mmol/L (98-107); COR CA(FOR HYPOALB) 9.4 mg/dL (8.5-10.1); COR NA(FOR HYPERGLY) 142 mmol/L (136-145); CREATININE 0.59 mg/dL (0.55-1.02); GLUCOSE 178 mg/dL (65-99); MAGNESIUM 2.2 mg/dL (2.0-2.9); PHOSPHORUS 2.1 mg/dL (2.6-4.7); POTASSIUM 4.2 mmol/L (3.5-5.1); SODIUM 140 mmol/L (136-145); TOTAL PROTEIN 6.5 g/dL (6.4-8.2); TRIGLYCERIDES 74 mg/dL (0-150); eGFR NON BLACK RACES > 60 (>60)
[2024-09-23] MEDS: PULMICORT NEB TX 0.5 MG NEB ONE (07:56)
[2024-09-23] MEDS: DUONEB 0.5 MG/3 MG (3 mL) NEB ONE (07:56)
--- NOTE | 2024-09-23 11:38 | PCM.PROG ---
Progress Note Progress Note for Day of Date of Exam: 09/23/24 Subjective Subjective: Patient is a 64-year-old female, patient of [facility], admitted for acute CVA. Patient does have a history of prior CVA that has affected her left side, upper and lower extremities. New CVA appears to have weak in her right side upper and lower extremities as well. MRI was ordered, results pending. Due to her poor prognosis she is a DNR. She is currently receiving TPN for nutrition. She also has an acute cystitis for Proteus ESBL. She is currently on IV meropenem. Keep patient NPO ,patient has aphagia. Follow-up imaging results. Otherwise continue with current treatment plan. Continue closely monitor and follow-up labs/imaging. Past Medical Family Social History Allergies: Allergies lisinopril Allergy (Verified 09/17/24 13:23) Review of Systems ROS changes noted: see HPI Vital Signs and I&O's Vital Signs: Vital Signs Temperature 98.7 F Temperature 98.4 F Pulse Rate [Left] 86 Pulse Rate [Left] 82 Respiratory Rate 19 Respiratory Rate 18 Blood Pressure [Left Arm] 141/75 Blood Pressure [Left Arm] 129/64 O2 Sat by Pulse Oximetry 96 O2 Sat by Pulse Oximetry 100 O2 Sat by Pulse Oximetry 96 Intake and Output: Intake & Output 09/20/24 09/21/24 09/22/24 09/23/24 23:59 23:59 23:59 23:59 Intake Total 1663 / 1663 1000 / 1000 1265 / 1265 Output Total 1999 / 1999 1500 / 1500 1000 / 1000 300 / 300 Balance -337 / -337 -1500 / -1500 0 / 0 965 / 965 Physical Exam Oriented: Unable to test Eyes: negative Discharge or Redness Nose: Normal Throat: Dry Respiratory: Diminished Cardiovascular: Edema; negative Tachycardia Auscultation: Bowel Sounds: Normal Tenderness: Normal Skin: Decreased Turgur Musculoskeletal: Motor Deficit and Sensory Deficit Psychiatric: Other (CANNOT ASSESS DUE TO APHAGIA) Mood Description: Calm Speech Pattern: Unable to speak Laboratory and Diagnostics 09/22/24 05:19 09/23/24 06:19 Labs: 09/19/24 15:21 Urine,Catheterized Urine Culture - Final Proteus Mirabilis Esbl Laboratory WBC 9.7 X10^3/uL (3.6-10.0) 09/22/24 05:19 RBC 4.15 X10^6/uL (3.5-5.4) 09/22/24 05:19 Hgb 13.3 g/dL (12.0-16.0) 09/22/24 05:19 Hct 38.9 % (36.0-47.0) 09/22/24 05:19 MCV 93.8 fL (80.0-100.0) 09/22/24 05:19 MCH 32.0 pg (27.0-34.0) 09/22/24 05:19 MCHC 34.1 g/dL (33.0-35.0) 09/22/24 05:19 RDW 14.3 % (11.6-16.5) 09/22/24 05:19 Plt Count 262 X10^3/uL (150.0-450.0) 09/22/24 05:19 MPV 7.6 fL (7.4-11.0) 09/22/24 05:19 Neut % (Auto) 59.5 % (42.0-75.0) 09/22/24 05:19 Lymph % (Auto) 27.0 % (21.0-51.0) 09/22/24 05:19 [place] % (Auto) 10.8 % (0.0-13.0) 09/22/24 05:19 Eos % (Auto) 1.8 % (0.9-2.9) 09/22/24 05:19 Baso % (Auto) 0.9 % (0.2-1.0) 09/22/24 05:19 Neut # (Auto) 5.8 x10^3/uL (2.2-4.8) H 09/22/24 05:19 Lymph # (Auto) 2.6 X10^3/uL (1.3-2.9) 09/22/24 05:19 [place] # (Auto) 1.0 x10^3/uL (0.3-0.8) H 09/22/24 05:19 Eos # (Auto) 0.2 x10^3/uL (0.0-0.2) 09/22/24 05:19 Baso # (Auto) 0.1 X10^3/uL (0.0-0.1) 09/22/24 05:19 Absolute Nucleated RBC 0.0 /100WBC 09/22/24 05:19 PT 17.4 SECONDS (11.8-14.3) 09/18/24 04:56 INR Target Range - 09/18/24 04:56 INR 1.46 (0.8-1.3) H 09/18/24 04:56 APTT 30.7 SECONDS (22.9-36.5) 09/18/24 04:56 PTT Comment - 09/18/24 04:56 Sodium 140 mmol/L (136-145) 09/23/24 06:19 Corrected Sodium 142 mmol/L (136-145) 09/23/24 06:19 Potassium 4.2 mmol/L (3.5-5.1) 09/23/24 06:19 Chloride 107 mmol/L (98-107) 09/23/24 06:19 Carbon Dioxide 25.0 mmol/L (21-32) 09/23/24 06:19 BUN 15 mg/dL (7-18) 09/23/24 06:19 Creatinine 0.59 mg/dL (0.55-1.02) 09/23/24 06:19 Est GFR (MDRD) Af Amer > 60 (>60) 09/23/24 06:19 Est GFR (MDRD) Non-Af > 60 (>60) 09/23/24 06:19 Glucose 178 mg/dL (65-99) H 09/23/24 06:19 POC Glucose (mg/dL) 174 mg/dL (65-99) H 09/23/24 05:36 Hemoglobin A1c 6.0 % 09/19/24 09:00 Calcium 8.4 mg/dL (8.5-10.1) L 09/23/24 06:19 Corrected Calcium 9.4 mg/dL (8.5-10.1) 09/23/24 06:19 Phosphorus 2.1 mg/dL (2.6-4.7) L 09/23/24 06:19 Magnesium 2.2 mg/dL (2.0-2.9) 09/23/24 06:19 Total Bilirubin 0.30 mg/dL (0.2-1.0) 09/23/24 06:19 AST 17 Units/L (15-37) 09/23/24 06:19 ALT 27 Units/L (12-78) 09/23/24 06:19 Alkaline Phosphatase 81 Units/L (46-116) 09/23/24 06:19 Creatine Kinase 84 Units/L (26-192) 09/19/24 18:45 Troponin I High Sens 9.3 ng/L (4.0-60.0) 09/18/24 04:56 Troponin I High Sens Cancelled 09/18/24 04:56 B-Natriuretic Peptide 39.2 pg/mL (0-79) 09/17/24 14:35 Total Protein 6.5 g/dL (6.4-8.2) 09/23/24 06:19 Albumin 2.7 g/dL (3.4-5.0) L 09/23/24 06:19 Globulin 3.8 g/dL (2.5-4.5) 09/23/24 06:19 Albumin/Globulin Ratio 0.7 Ratio (1.1-2.1) L 09/23/24 06:19 Prealbumin 15.4 mg/dL (18-35.7) L 09/21/24 05:49 Triglycerides 74 mg/dL (0-150) 09/23/24 06:19 Cholesterol 113 mg/dL (0-200) 09/18/24 04:56 LDL Cholesterol, Calc 57 mg/dL (0-100) 09/18/24 04:56 HDL Cholesterol 43 mg/dL (40-60) 09/18/24 04:56 Cholesterol/HDL Ratio 2.6 (0.0-5.0) 09/18/24 04:56 Specimen Type Catherized urine 09/19/24 15:21 Urine Color Pale yellow (YELLOW) 09/19/24 15:21 Urine Appearance Slightly hazy (CLEAR) 09/19/24 15:21 Urine pH 6.0 (5.0 - 8.0) 09/19/24 15:21 Ur Specific [place] 1.015 (1.000-1.030) 09/19/24 15:21 Urine Protein 1+ (NEGATIVE) 09/19/24 15:21 Urine Glucose (UA) Negative (NEGATIVE) 09/19/24 15:21 Urine Ketones 3+ (NEGATIVE) 09/19/24 15:21 Urine Blood 1+ (NEGATIVE) 09/19/24 15:21 Urine Nitrite Negative (NEGATIVE) 09/19/24 15:21 Urine Bilirubin Negative (NEGATIVE) 09/19/24 15:21 Urine Urobilinogen Normal (NORMAL) 09/19/24 15:21 Ur Leukocyte Esterase 1+ (NEGATIVE) 09/19/24 15:21 Urine RBC 5-10 /HPF (0-3) A 09/19/24 15:21 Urine WBC 30-50 /HPF (0-5) A 09/19/24 15:21 Ur Squamous Epith Cells Numerous /HPF (NEGATIVE) 09/19/24 15:21 Urine Bacteria 1+ /HPF (NEGATIVE) 09/19/24 15:21 Ur Culture Indicated? Yes/culture set up 09/19/24 15:21 Resp Viral Panel (PCR) See scanned report 09/19/24 09:29 Plan (1) Acute CVA (cerebrovascular accident): Status: Acute (2) History of CVA (cerebrovascular accident): Status: Acute (3) Afib: Status: Acute (4) Hypertension: Status: Acute (5) Hyperlipidemia: Status: Acute
[2024-09-24 06:54] LABS: BLOOD UREA NITROGEN 12 mg/dL (7-18); CALCIUM 8.2 mg/dL (8.5-10.1); CARBON DIOXIDE 24.7 mmol/L (21-32); CHLORIDE 108 mmol/L (98-107); COR NA(FOR HYPERGLY) 143 mmol/L (136-145); CREATININE 0.49 mg/dL (0.55-1.02); GLUCOSE 246 mg/dL (65-99); SODIUM 139 mmol/L (136-145); eGFR NON BLACK RACES > 60 (>60)
[2024-09-24 06:56] LABS: POTASSIUM 4.5 mmol/L (3.5-5.1)
[2024-09-24] MEDS: CLINIMIX 5 %/20 % 1,000 ML with MVI INJ (ADULT) 10 ML, TPN ELECTROLYTES 20 ML IV SCH (09:24)
[2024-09-24] MEDS: DRUG FILTER EXTENSION SET ONE ×2 (09:25)
[2024-09-24 10:59] LABS: BASOPHILS % (AUTO) 0.3 % (0.2-1.0); EOSINOPHILS # (AUTO) 0.1 x10^3/uL (0.0-0.2); EOSINOPHILS % (AUTO) 2.1 % (0.9-2.9); HEMATOCRIT 32.8 % (36.0-47.0); HEMOGLOBIN 9.9 g/dL (12.0-16.0); LYMPHOCYTES # (AUTO) 1.3 X10^3/uL (1.3-2.9); LYMPHOCYTES % (AUTO) 19.9 % (21.0-51.0); MEAN CORPUSCULAR HEMOGLOBIN 31.4 pg (27.0-34.0); MEAN CORPUSCULAR HGB CONC 30.1 g/dL (33.0-35.0); MEAN CORPUSCULAR VOLUME 104.3 fL (80.0-100.0); MEAN PLATELET VOLUME 7.2 fL (7.4-11.0); MONOCYTES # (AUTO) 0.5 x10^3/uL (0.3-0.8); NEUTROPHILS # (AUTO) 4.7 x10^3/uL (2.2-4.8); NEUTROPHILS % (AUTO) 70.7 % (42.0-75.0); PLATELET COUNT 221 X10^3/uL (150.0-450.0); RED BLOOD COUNT 3.14 X10^6/uL (3.5-5.4); RED CELL DISTRIBUTION WIDTH 14.7 % (11.6-16.5); WHITE BLOOD COUNT 6.7 X10^3/uL (3.6-10.0)
--- NOTE | 2024-09-24 11:14 | PCM.PROG ---
Progress Note Progress Note for Day of Date of Exam: 09/24/24 Subjective Subjective: Patient is a 64-year-old female, patient of [facility], admitted for acute CVA. Patient does have a history of prior CVA that has affected her left side, upper and lower extremities. New CVA appears to have weak in her right side upper and lower extremities as well. No acute events overnight. Pt examined at bedside. MRI was ordered, results are still pending. Due to her poor prognosis she is a DNR. She is currently receiving TPN for nutrition. She also has an acute cystitis for Proteus ESBL. She is currently on IV meropenem. Keep patient NPO, patient has aphagia. Follow-up imaging results. Otherwise continue with current treatment plan. Continue closely monitor and follow-up labs/imaging. Past Medical Family Social History Allergies: Allergies lisinopril Allergy (Verified 09/17/24 13:23) Review of Systems ROS changes noted: see HPI Vital Signs and I&O's Vital Signs: Vital Signs Temperature 97.7 F Temperature 98.1 F Pulse Rate [Right Brachial] 88 Pulse Rate [Left] 81 Respiratory Rate 18 Respiratory Rate 20 Blood Pressure [Right Arm] 162/80 Blood Pressure [Left Arm] 134/73 O2 Sat by Pulse Oximetry 96 O2 Sat by Pulse Oximetry 96 O2 Sat by Pulse Oximetry 96 Intake and Output: Intake & Output 09/21/24 09/22/24 09/23/24 09/24/24 23:59 23:59 23:59 23:59 Intake Total 1000 / 1000 3626 / 3626 1800 / 1800 Output Total 1500 / 1500 1000 / 1000 3185 / 3185 700 / 700 Balance -1500 / -1500 0 / 0 441 / 441 1100 / 1100 Physical Exam Oriented: Unable to test Eyes: negative Discharge or Redness Nose: Normal Throat: Dry Respiratory: Diminished Cardiovascular: Edema; negative Tachycardia Auscultation: Bowel Sounds: Normal Tenderness: Normal Skin: Decreased Turgur Musculoskeletal: Motor Deficit and Sensory Deficit Psychiatric: Other (CANNOT ASSESS DUE TO APHAGIA) Mood Description: Calm Speech Pattern: Unclear and Aphasic Laboratory and Diagnostics 09/24/24 10:55 09/24/24 06:15 Labs: 09/19/24 15:21 Urine,Catheterized Urine Culture - Final Proteus Mirabilis Esbl Laboratory WBC 6.7 X10^3/uL (3.6-10.0) 09/24/24 10:55 RBC 3.14 X10^6/uL (3.5-5.4) L 09/24/24 10:55 Hgb 9.9 g/dL (12.0-16.0) L D 09/24/24 10:55 Hct 32.8 % (36.0-47.0) L 09/24/24 10:55 MCV 104.3 fL (80.0-100.0) H 09/24/24 10:55 MCH 31.4 pg (27.0-34.0) 09/24/24 10:55 MCHC 30.1 g/dL (33.0-35.0) L 09/24/24 10:55 RDW 14.7 % (11.6-16.5) 09/24/24 10:55 Plt Count 221 X10^3/uL (150.0-450.0) 09/24/24 10:55 MPV 7.2 fL (7.4-11.0) L 09/24/24 10:55 Neut % (Auto) 70.7 % (42.0-75.0) 09/24/24 10:55 Lymph % (Auto) 19.9 % (21.0-51.0) L 09/24/24 10:55 [place] % (Auto) 7.0 % (0.0-13.0) 09/24/24 10:55 Eos % (Auto) 2.1 % (0.9-2.9) 09/24/24 10:55 Baso % (Auto) 0.3 % (0.2-1.0) 09/24/24 10:55 Neut # (Auto) 4.7 x10^3/uL (2.2-4.8) 09/24/24 10:55 Lymph # (Auto) 1.3 X10^3/uL (1.3-2.9) 09/24/24 10:55 [place] # (Auto) 0.5 x10^3/uL (0.3-0.8) 09/24/24 10:55 Eos # (Auto) 0.1 x10^3/uL (0.0-0.2) 09/24/24 10:55 Baso # (Auto) 0.0 X10^3/uL (0.0-0.1) 09/24/24 10:55 Absolute Nucleated RBC 0.1 /100WBC 09/24/24 10:55 PT 17.4 SECONDS (11.8-14.3) 09/18/24 04:56 INR Target Range - 09/18/24 04:56 INR 1.46 (0.8-1.3) H 09/18/24 04:56 APTT 30.7 SECONDS (22.9-36.5) 09/18/24 04:56 PTT Comment - 09/18/24 04:56 Sodium 139 mmol/L (136-145) 09/24/24 06:15 Corrected Sodium 143 mmol/L (136-145) 09/24/24 06:15 Potassium 4.5 mmol/L (3.5-5.1) 09/24/24 06:15 Chloride 108 mmol/L (98-107) H 09/24/24 06:15 Carbon Dioxide 24.7 mmol/L (21-32) 09/24/24 06:15 BUN 12 mg/dL (7-18) 09/24/24 06:15 Creatinine 0.49 mg/dL (0.55-1.02) L 09/24/24 06:15 Est GFR (MDRD) Af Amer > 60 (>60) 09/24/24 06:15 Est GFR (MDRD) Non-Af > 60 (>60) 09/24/24 06:15 Glucose 246 mg/dL (65-99) H 09/24/24 06:15 POC Glucose (mg/dL) 235 mg/dL (65-99) H 09/24/24 05:20 Hemoglobin A1c 6.0 % 09/19/24 09:00 Calcium 8.2 mg/dL (8.5-10.1) L 09/24/24 06:15 Corrected Calcium 9.4 mg/dL (8.5-10.1) 09/23/24 06:19 Phosphorus 2.1 mg/dL (2.6-4.7) L 09/23/24 06:19 Magnesium 2.2 mg/dL (2.0-2.9) 09/23/24 06:19 Total Bilirubin 0.30 mg/dL (0.2-1.0) 09/23/24 06:19 AST 17 Units/L (15-37) 09/23/24 06:19 ALT 27 Units/L (12-78) 09/23/24 06:19 Alkaline Phosphatase 81 Units/L (46-116) 09/23/24 06:19 Creatine Kinase 84 Units/L (26-192) 09/19/24 18:45 Troponin I High Sens 9.3 ng/L (4.0-60.0) 09/18/24 04:56 Troponin I High Sens Cancelled 09/18/24 04:56 B-Natriuretic Peptide 39.2 pg/mL (0-79) 09/17/24 14:35 Total Protein 6.5 g/dL (6.4-8.2) 09/23/24 06:19 Albumin 2.7 g/dL (3.4-5.0) L 09/23/24 06:19 Globulin 3.8 g/dL (2.5-4.5) 09/23/24 06:19 Albumin/Globulin Ratio 0.7 Ratio (1.1-2.1) L 09/23/24 06:19 Prealbumin 15.4 mg/dL (18-35.7) L 09/21/24 05:49 Triglycerides 74 mg/dL (0-150) 09/23/24 06:19 Cholesterol 113 mg/dL (0-200) 09/18/24 04:56 LDL Cholesterol, Calc 57 mg/dL (0-100) 09/18/24 04:56 HDL Cholesterol 43 mg/dL (40-60) 09/18/24 04:56 Cholesterol/HDL Ratio 2.6 (0.0-5.0) 09/18/24 04:56 Specimen Type Catherized urine 09/19/24 15:21 Urine Color Pale yellow (YELLOW) 09/19/24 15:21 Urine Appearance Slightly hazy (CLEAR) 09/19/24 15:21 Urine pH 6.0 (5.0 - 8.0) 09/19/24 15:21 Ur Specific [place] 1.015 (1.000-1.030) 09/19/24 15:21 Urine Protein 1+ (NEGATIVE) 09/19/24 15:21 Urine Glucose (UA) Negative (NEGATIVE) 09/19/24 15:21 Urine Ketones 3+ (NEGATIVE) 09/19/24 15:21 Urine Blood 1+ (NEGATIVE) 09/19/24 15:21 Urine Nitrite Negative (NEGATIVE) 09/19/24 15:21 Urine Bilirubin Negative (NEGATIVE) 09/19/24 15:21 Urine Urobilinogen Normal (NORMAL) 09/19/24 15:21 Ur Leukocyte Esterase 1+ (NEGATIVE) 09/19/24 15:21 Urine RBC 5-10 /HPF (0-3) A 09/19/24 15:21 Urine WBC 30-50 /HPF (0-5) A 09/19/24 15:21 Ur Squamous Epith Cells Numerous /HPF (NEGATIVE) 09/19/24 15:21 Urine Bacteria 1+ /HPF (NEGATIVE) 09/19/24 15:21 Ur Culture Indicated? Yes/culture set up 09/19/24 15:21 Resp Viral Panel (PCR) See scanned report 09/19/24 09:29 Plan (1) Acute CVA (cerebrovascular accident): Status: Acute Plan: ADMIT, CE AND EKG,C T HEAD ON ADMISSION MRI BRAIN CAROTID,ECHO, VERIFY HOME MEDICATIONS BP CONTROL, NPO UNTIL MRI BRAIN AND SPEECH EVALUATION PRN SUPPLEMENTAL O2, ASPIRATION PRECAUTIONS (2) History of CVA (cerebrovascular accident): Status: Acute (3) Afib: Status: Acute (4) Hypertension: Status: Acute (5) Hyperlipidemia: Status: Acute
[2024-09-25 06:08] LABS: BLOOD UREA NITROGEN 11 mg/dL (7-18); CALCIUM 8.3 mg/dL (8.5-10.1); CARBON DIOXIDE 24.7 mmol/L (21-32); CHLORIDE 104 mmol/L (98-107); COR NA(FOR HYPERGLY) 143 mmol/L (136-145); CREATININE 0.73 mg/dL (0.55-1.02); GLUCOSE 391 mg/dL (65-99); POTASSIUM 3.7 mmol/L (3.5-5.1); SODIUM 136 mmol/L (136-145); eGFR NON BLACK RACES > 60 (>60)
--- NOTE | 2024-09-25 09:11 | MRI ---
EXAM: MRA HEAD W/O CON HISTORY: cva ; COMPARISON: 09/18/2024 TECHNIQUE: Multiplanar, multisequence MR angiogram of the brain obtained without IV contrast. 3D [id number]-rfkjiq sequences obtained and reviewed. FINDINGS: Visualized portions of the bilateral internal carotid arteries appear widely patent. The bilateral m iddle cerebral and anterior cerebral arteries appear widely patent. Poor visualization of the vertebral arteries. Apparent dominant left vertebral artery. The proximal basilar artery appears widely patent. Poor visualization of the distal basilar artery and remaining posterior circulation. No evidence of large vessel aneurysm or dissection in the head. IMPRESSION: Poor visualization of the vertebral arteries, basilar artery, and posterior circulation which may be due to technique/artifact. CTA of the head and neck could better evaluate. Visualized portions of the internal carotid and bilateral middle cerebral arteries appear widely salgado nt. THIS IS AN ELECTRONICALLY VERIFIED FINAL REPORT 09/25/2024 9:05 AM - Electronically signed by Aj Wallace MD
--- NOTE | 2024-09-25 10:41 | MRI ---
EXAM: MRI CERVICAL SPINE WITHOUT CONTRAST HISTORY: NECK PAIN; . COMPARISON: None. TECHNIQUE: Multiplanar multisequence MRI of the cervical spine was performed without contrast. FINDINGS: Grade 1 retrolisthesis at C5-C6 with reversal of cervical lordosis. Moderate multilevel disc height loss and degenerative endplate signal. Normal cervical spinal cord signal. Axial Images: C2-C3: Normal disc. Moderate facet hypertrophy. No spinal canal stenosis or foraminal narrowing. C3-C4: Normal disc. Moderate facet hypertrophy, cyia-nmiykld-vovz-right. No spinal canal stenosis. Moderate left and mild right foraminal narrowing. C4-C5: Uncovertebral hypertrophy and disc osteophyte eccentric to the left. Moderate facet hypertrop hy. Mild spinal canal stenosis. Moderate to severe foraminal narrowing. C5-C6: Diffuse disc osteophyte. Moderate facet hypertrophy. Moderate spinal canal stenosis. Modera te left and eqdmbfdw-ad-mebbzh right foraminal narrowing. C6-C7: Diffuse disc osteophyte. Mild facet hypertrophy. Mild spinal canal stenosis. Severe left an d moderate right foraminal narrowing. C7-T1: Mild uncovertebral and facet hypertrophy. No spinal canal stenosis. Mild foraminal narrowing . IMPRESSION: 1. Acquired multilevel spondylosis. Moderate C5-C6 spinal canal stenosis. 2. Multilevel foraminal narrowing, severe on the left at C6-C7. THIS IS AN ELECTRONICALLY VERIFIED FINAL REPORT 09/25/2024 10:38 AM - Electronically signed by Deni Torres MD
--- NOTE | 2024-09-25 11:54 | RAD ---
EXAM:CHEST, 1 VIEWHISTORY:SOB;COMPARISON:09/20/2024 r.br.br.br PICC unchanged.Scattered bilateral airspace opacities. No pneumothorax or effusion.No acute osseous abnormality.IMPRESSION:Scattered bilateral opacities which may reflect chronic changes or pneumonia.THIS IS AN ELECTRONICALLY VERIFIED FINAL REPORT09/25/2024 11:51 AM - Electronically signed by Aj Wallace MD
[2024-09-25] MEDS: DRUG FILTER EXTENSION SET ONE (19:03)
[2024-09-26 06:19] LABS: BASOPHILS % (AUTO) 0.6 % (0.2-1.0); EOSINOPHILS # (AUTO) 0.1 x10^3/uL (0.0-0.2); EOSINOPHILS % (AUTO) 1.9 % (0.9-2.9); HEMATOCRIT 39.3 % (36.0-47.0); HEMOGLOBIN 13.3 g/dL (12.0-16.0); LYMPHOCYTES # (AUTO) 2.5 X10^3/uL (1.3-2.9); MEAN CORPUSCULAR HEMOGLOBIN 31.3 pg (27.0-34.0); MEAN CORPUSCULAR VOLUME 92.1 fL (80.0-100.0); MEAN PLATELET VOLUME 7.2 fL (7.4-11.0); MONOCYTES # (AUTO) 0.7 x10^3/uL (0.3-0.8); MONOCYTES % (AUTO) 9.7 % (0.0-13.0); NEUTROPHILS # (AUTO) 4.2 x10^3/uL (2.2-4.8); NEUTROPHILS % (AUTO) 54.8 % (42.0-75.0); PLATELET COUNT 268 X10^3/uL (150.0-450.0); RED BLOOD COUNT 4.26 X10^6/uL (3.5-5.4); RED CELL DISTRIBUTION WIDTH 13.7 % (11.6-16.5); WHITE BLOOD COUNT 7.7 X10^3/uL (3.6-10.0)
[2024-09-26 06:28] LABS: BLOOD UREA NITROGEN 13 mg/dL (7-18); CALCIUM 8.9 mg/dL (8.5-10.1); CARBON DIOXIDE 26.9 mmol/L (21-32); CHLORIDE 107 mmol/L (98-107); COR NA(FOR HYPERGLY) 142 mmol/L (136-145); CREATININE 0.58 mg/dL (0.55-1.02); GLUCOSE 135 mg/dL (65-99); POTASSIUM 3.9 mmol/L (3.5-5.1); SODIUM 141 mmol/L (136-145); eGFR NON BLACK RACES > 60 (>60)
[2024-09-26 07:11] LABS: PHOSPHORUS 2.5 mg/dL (2.6-4.7)
[2024-09-26] MEDS: DRUG FILTER EXTENSION SET ONE (09:16)
[2024-09-26] MEDS ORDERED: PHARMACY CONSULT - TPN XX SCH (10:00)
[2024-09-26] MEDS ORDERED: PHARMACY CONSULT LTC MEDICATIONS XX SCH (10:00)
[2024-09-26 11:55] VITALS: BP 135/63; PULSE 94; RESP 18; TEMP 98.5; O2SAT 96
== END 2024-09-26 12:44 | DRG 64 ==
LOC: MED/SURG 13:14 → ER 13:14 → OBSVTOIN 16:56 → MED/SURG 17:06
PROVIDERS: ADMIT Internal Medicine; ATTEND Internal Medicine
DX: F41.8 Other specified anxiety disorders; Z79.01 Long term (current) use of anticoagulants; I48.91 Unspecified atrial fibrillation; R79.1 Abnormal coagulation profile; R06.02 Shortness of breath; N39.0 Urinary tract infection, site not specified; I69.398 Other sequelae of cerebral infarction; I63.89 Other cerebral infarction; R47.01 Aphasia; Z16.23 Resistance to quinolones and fluoroquinolones; M54.2 Cervicalgia; R41.82 Altered mental status, unspecified; I10 Essential (primary) hypertension; R53.1 Weakness; G81.94 Hemiplegia, unspecified affecting left nondominant side; K21.9 Gastro-esophageal reflux disease without esophagitis; R26.89 Other abnormalities of gait and mobility; I25.10 Atherosclerotic heart disease of native coronary artery without angina pectoris; R13.11 Dysphagia, oral phase; I87.2 Venous insufficiency (chronic) (peripheral); Z16.29 Resistance to other single specified antibiotic; E78.5 Hyperlipidemia, unspecified; Z16.12 Extended spectrum beta lactamase (ESBL) resistance; R00.0 Tachycardia, unspecified; B96.4 Proteus (mirabilis) (morganii) as the cause of diseases classified elsewhere; J18.8 Other pneumonia, unspecified organism; Z66 Do not resuscitate; B95.61 Methicillin susceptible Staphylococcus aureus infection as the cause of diseases classified elsewhere